=== PATIENT | male | born 1960 | race Caucasian/White ===

== ENCOUNTER 2019-11-16 09:04 | Emergency (ER) | payer SELFPAY ==
[2019-11-16 09:22] VITALS: BP 134/99; PULSE 65; RESP 18; TEMP 36.6; O2SAT 100; BMI 26.2
--- NOTE | 2019-11-16 09:36 | ED_ITS ---
HPI - Extremity Problem General: Chief complaint: Extremity Problem,Nontraumatic Stated complaint: Left hip/knee pain Time Seen by Provider: 11/16/19 09:10 Source: patient Mode of arrival: ambulatory Limitations: no limitations History of Present Illness: HPI Narrative: Patient is a very nice 59-year-old gentleman who presents to ED today with complaints of left-sided lower back pain with radiation into his left lower extremity. Patient states symptoms of been present over the past few days without any known injury or trauma. Patient states he has been told previously he has degenerative disc disease in his back although usually does not suffer from back discomfort. He describes the pain as a burning sensation starting in his left back and radiating around into the a nterior aspect of his left thigh down to approximately his knee. He denies any numbness/tingling/loss of sensation. Patient is ambulatory with a mild limp. He has not noticed any redness or swelling to his extremity. There is no complaints of pallor or coolness to the extremity. He does not complain of any numbness to his groin/genitals or any problems defecating or urinating. MD Complaint: extremity pain, joint paint and other (back pain) Onset (ago): day(s) Pain Consistency: constant Location: left Quality: burning Radiation: distal Relieving factors: nothing Exacerbating factors: range of motion, weight bearing and walking Associated symptoms: Deny chest pain, fever(s) or rash Review of Systems Const: Denies: fever, chills, body aches, fatigue, malaise or night sweats Card: Denies: chest pain, palpitations, irregular heart rhythm, edema, swelling of feet/ankles, lightheadedness, pre-syncope, shortness of breath on exertion, shortness of breath when lying down, leg pain with exertion or bluish discoloration of hands/feet Resp: Denies: shortness of breath or chest congestion : Denies: flank pain, difficulty urinating, painful urination, urinary frequency, urinary urgency or urinary hesitancy Musc: Reports: back pain, extremity pain and joint pain (back pain radiates into L hip); Denies: neck pain, extremity swelling, joint swelling, redness, joint warmth, joint stiffness, muscle cramps or muscle weakness Skin/Breast: Denies: rash Neuro: Denies: headache, numbness in extremities, weakness in extremities or changes in sensation PFSH ED PFSH: Social History Smoking and tobacco status: never smoked Physical Exam Const: COMMON NORMALS: no apparent distress, average body habitus, oriented x3, no limitations, healthy appearing, alert and well nourished Resp: COMMON NORMALS: normal respiratory effort and clear to auscultation bilaterally AUSCULTATION: clear to auscultation bilaterally Cardio: COMMON NORMALS: regular rate and regular rhythm RATE: regular rate RHYTHM: regular rhythm : COMMON NORMALS: Yes no CVA tenderness BLADDER/KIDNEY EXAM: Yes no CVA tenderness Back/Pelvis: COMMON NORMALS: no CVA tenderness, thoracic and lumbar spine normal to inspection and no thoracic nor lumbar tenderness LUMBAR SPINE/LOWER BACK: Yes paraspinal muscle tenderness Lumbar paraspinal muscle tenderness: left and Yes straight leg raise positive left SACROILIAC JOINTS: Yes SI joint(s) abnormal SI joint details: tender to palpation (left) and pain elicited by passi ve hyperextension of lower extremity (left) Extremity: COMMON NORMALS: normal capillary refill, no clubbing, cyanosis or edema, no calf tenderness and no pedal edema Neuro: COMMON NORMALS: oriented x3, moves all extremities, no focal motor deficits, no sensory deficits noted and deep tendon reflexes 2+ bilaterally SENSORIUM/ORIENTATION: Yes alert GAIT: Yes other (gait with a limp) Skin: COMMON NORMALS: no rashes or lesions noted GENERAL SKIN EXAM: no rashes or lesions noted Course Vital Signs: Vital signs: Vital Signs Temperature 97.9 F 11/16/19 09:22 Pulse Rate 68 11/16/19 10:39 Respiratory Rate 17 11/16/19 10:39 Blood Pressure 133/98 11/16/19 10:39 Pulse Oximetry 97 11/16/19 10:39 MDM - Extremity (Nontraumatic) MDM Narrative: Medical decision making narrative: pt feels better after IV meds and would like to go home; he has no acute neurological deficits here to warrant emergent advanced imaging or further workup; recommend he follow up with PCP in 1-2 wks for continued discomfort Discharge Plan Discharge Patient Disposition: Home, Self-Care Clinical Impression: Acute lumbar radiculopathy Condition: Stable Prescriptions: New cyclobenzaprine 10 mg tablet 10 mg PO TID Qty: 14 RF: 0 ibuprofen 800 mg tablet 800 mg PO Q8H PRN (Reason: pain) Qty: 20 RF: 0 Medrol (Reyes) 4 mg tablets,dose pack See Rx Instructions .ROUTE .COMPLEX Qty: 21 RF: 0 hydrocodone-acetaminophen 5-325 mg tablet 1 tab PO Q6H PRN (Reason: pain) Qty: 12 RF: 0 Discharge Orders: Discharge Order (Routine); Ordered 11/16/19 Ordered By: Danya Sorto Discharge Diet: Usual diet Discharge Activity: Increase activity as tolerated Patient Instructions: Lumbar Disc Herniation (ED), Lumbar Radiculopathy (ED) Discharge Date/Time: 11/16/19 10:42 Coding Level of Care Code ED Digital Project Coordinator for Darcig Fwd Exam Comprehensive
[2019-11-16] MEDS: ketorolac 60 mg/2 mL INJ IM (09:55)
[2019-11-16] MEDS: orphenadrine 30 mg/mL Inj 2 mL 60 MG IM (09:55)
[2019-11-16] MEDS: dexamethasone 10 mg/mL INJ 8 MG IM (09:55)
[2019-11-16 10:39] VITALS: BP 133/98; PULSE 68; RESP 17; O2SAT 97
== END 2019-11-16 10:42 | disposition home or self-care (01) ==
PROVIDERS: Emergency Provider Physician Assistant
DX: M54.16 Radiculopathy, lumbar region (principal)
CPT/HCPCS: 12345; 96372; 99281; 99283; J1100; J1885; J2360

== ENCOUNTER 2019-12-10 07:43 | Outpatient (CLI) | payer SELFPAY ==
--- NOTE | 2019-12-10 07:54 | MR_ITS ---
WS: [id number] MRI LUMBAR SPINE NONCONTRAST TECHNIQUE: Sagittal T1, T2 and STIR imaging. Axial T1 and T2 imaging. CLINICAL INFORMATION: LOW BACK PAIN COMPARISON: None. FINDINGS: Mild lumbar curve. No acute compression. No high-grade central canal stenosis. Mild disc bulging wors e L4-5 with a tiny annular fissure. L1-L2: Mild annular bulging. Mild facet arthropathy. Spinal canal and foramen are patent. L2-L3: Mild annular bulging. Mild facet arthropathy. Spinal canal and foramen are patent. L3-L4: Mild annular bulging. Slight effacement of ventral thecal sac. Small left foraminal protrusion slightly encroaches on the exiting L3 nerve root with mild left foraminal narrowing. Right foramen i s patent. Mild facet arthropathy. L4-L5: Shallow left pericentral disc protrusion with a tiny annular fissure. Mild facet arthropathy. Left foraminal protrusion impinges the exiting left L4 nerve root with moderate left proximal foramin al narrowing. Right foramen is patent. Mild facet arthropathy. Impingement traversing left L5 nerve r oot in the subarticular recess with mild central canal stenosis. L5-S1: Mild annular bulging. Mild facet arthropathy. Mild right greater than left foraminal narrowing . Spinal canal is patent. Tarlov cysts in the sacrum. Tiny amount of myelomalacia visualized in the cervical cord at C7/T1. MR/MR lumbar spine wo con* [id number] IMPRESSION: 1. Mild lumbar curve. No acute compression. No high-grade central canal stenos is. 2. Shallow left pericentral protrusion L4-5 impinges the traversing left L5 ne rve root with mild central canal stenosis. 3. Left proximal foraminal protrusion L4-5 impinges the exiting left L4 nerve root with moderate left foraminal narrowing. Recommend correlation for left L4 nerve root symptoms. 4. Far left foraminal protrusion L3-4 slightly contacts the far exiting left L 3 nerve root. 5. Mild to moderate facet arthropathy L3-L5. 6. Small amount of T2 signal normality in the cervical cord at C7-T1 likely re presents myelomalacia. Cervical cord could be further evaluated with MRI.
== END 2019-12-10 07:44 | disposition home or self-care (01) ==
LOC: RADWPI 07:45
PROVIDERS: PCP Physician Assistant; Visit Provider Physician Assistant
DX: M51.26 Other intervertebral disc displacement, lumbar region (principal); M47.816 Spondylosis without myelopathy or radiculopathy, lumbar region
CPT/HCPCS: 72148

== ENCOUNTER 2019-12-31 09:55 | Outpatient (CLI) | payer SELFPAY ==
--- NOTE | 2019-12-31 10:20 | MR_ITS ---
WS: [id number] MRI CERVICAL SPINE HISTORY: MYELOMALACIA COMPARISON: None available. 2 mm retrolisthesis of C3. Moderate degenerative disc space narrowing at C6-7. No marrow edema or fra cture. There is a 3 mm area of increased signal in the cervical cord posterior to the superior endplate of T 2. This is in the central cord without area of stenosis or gliosis or cord atrophy. Craniocervical junction, C1 and C2 relationship, odontoid process and soft tissues are normal. C2-C3: Normal. C3-C4: Mild diffuse disc bulging with mild bilateral foraminal stenosis. Mild encroachment upon the v entral thecal sac by osteophytes. C4-C5: Mild annular disc bulging and facet joint arthritis. Mild to moderate RIGHT foraminal stenosis . C5-C6: Mild asymmetric disc bulging and osteophytic ridging. Very slight narrowing of the central can al and mild narrowing of the foramen. C6-C7: Mild diffuse annular disc bulging and facet arthritis. Small bilateral foraminal osteophytes. There is mild central and LEFT foraminal stenosis due to disc osteophyte disease. C7-T1: Normal. Paraspinal soft tissue are normal. MR/MR cervical spin wo con* [id number] IMPRESSION: 1. Increased fluid signal in the cord posterior to T2 measures 3 mm. Favor thi s is probably a tiny syrinx or cyst and less likely myelomalacia. There is no a ssociated stenosis or cord gliosis or atrophy. 2. Mild central stenosis at C3-4 and C6-7 due to disc osteophyte disease. 3. Mild to moderate RIGHT foraminal stenosis at C4-5. 4. Mild LEFT foraminal stenosis at C6-7 and bilateral at C3-4 and C5-6.
== END 2019-12-31 09:56 | disposition home or self-care (01) ==
LOC: RADWPI 09:58
PROVIDERS: PCP Physician Assistant; Visit Provider Physician Assistant
DX: G95.89 Other specified diseases of spinal cord (principal); M48.02 Spinal stenosis, cervical region; M25.78 Osteophyte, vertebrae
CPT/HCPCS: 72141

== ENCOUNTER 2020-07-28 08:31 | Outpatient (CLI) | payer SELFPAY | END 2020-07-28 08:32 | disposition home or self-care (01) | LOC: WOUND 08:32 | PROVIDERS: PCP Physician Assistant; Visit Provider Surgery | DX: S61.225A Laceration with foreign body of left ring finger without damage to nail, initial encounter (principal) | CPT/HCPCS: 11043; G0463 ==

== ENCOUNTER 2020-08-02 14:06 | Outpatient (CLI) | payer SELFPAY | END 2020-08-02 14:07 | disposition home or self-care (01) | LOC: WOUND 14:07 | PROVIDERS: PCP Physician Assistant; Visit Provider Nurse Practitioner Family | DX: S61.221A Laceration with foreign body of left index finger without damage to nail, initial encounter (principal); X58.XXXA Exposure to other specified factors, initial encounter | CPT/HCPCS: 11042 ==

== ENCOUNTER 2020-08-09 13:43 | Outpatient (CLI) | payer SELFPAY | END 2020-08-09 13:44 | disposition home or self-care (01) | LOC: WOUND 13:44 | PROVIDERS: PCP Physician Assistant; Visit Provider Nurse Practitioner Family | DX: S61.225A Laceration with foreign body of left ring finger without damage to nail, initial encounter (principal); X58.XXXA Exposure to other specified factors, initial encounter | CPT/HCPCS: 11042 ==

== ENCOUNTER 2020-08-18 08:01 | Outpatient (CLI) | payer SELFPAY | END 2020-08-18 08:02 | disposition home or self-care (01) | LOC: WOUND 08:02 | PROVIDERS: PCP Physician Assistant; Visit Provider Surgery | DX: L98.492 Non-pressure chronic ulcer of skin of other sites with fat layer exposed (principal) | CPT/HCPCS: 11042 ==

== ENCOUNTER 2020-08-25 08:10 | Outpatient (CLI) | payer SELFPAY | END 2020-08-25 08:11 | disposition home or self-care (01) | LOC: WOUND 08:11 | PROVIDERS: PCP Physician Assistant; Visit Provider Surgery | DX: L98.492 Non-pressure chronic ulcer of skin of other sites with fat layer exposed (principal) | CPT/HCPCS: 97597 ==

== ENCOUNTER → 2024-03-25 13:38 | Outpatient (BNVA) | payer MEDICARE, SELFPAY | PROVIDERS: PCP Physician Assistant; Visit Provider Physician Assistant | DX: M79.641 Pain in right hand (principal); R22.31 Localized swelling, mass and lump, right upper limb | CPT/HCPCS: 73130; 99204 ==

== ENCOUNTER 2024-05-06 10:18 | Day surgery (SDC) | payer MEDICARE, SELFPAY ==
[2024-05-06] VITALS (7 sets, daily range): BP systolic 133–161; BP diastolic 60–94; PULSE 50–56; RESP 16–18; TEMP 36.1–36.6; O2SAT 92–97
[2024-05-06] MEDS: sodium chloride 0.9% 1,000 ML 30 ML IV (10:43)
[2024-05-06] MEDS: acetaminophen 1,000 MG/100 ML PIGGYBACK 400 MG IV (10:44)
[2024-05-06] MEDS: ketorolac 30 mg/mL INJ IVP (10:48)
--- NOTE | 2024-05-06 10:56 | ANES.PREANE2 ---
Pre-Anesthetic Assessment Height/Weight: Height 1.93 m Weight 101.605 kg Temp Pulse Resp BP Pulse Ox O2 Del Method 97.9 F 56 L 16 133/94 97 Room Air 05/06/24 10:34 05/06/24 10:34 05/06/24 10:34 05/06/24 10:34 05/06/24 10:34 05/06/24 10:34 Operation Date: 05/06/24 12:20 Proposed Procedures p Left hand palmar cyst excision(Left) - Tony Roberts DO Familial anesthetic complications: None Was Beta Greyson taken within 24 hours: N/A Was Clonidine taken within 24 hours: N/A Last intake: Intake Last Liquid Date 05/05/24 Last Liquid Time 21:00 Last Solid Date 05/05/24 Last Solid Time 20:00 Social No alcohol and No tobacco Exam alert, oriented x 3, clear to auscultation bilaterally and regular rate & rhythm Airway Mallampati: Class II Dentition: other (2 teeth) CV/HEM Hypertension GI Gastroesophageal Reflux Disease Anesthetic Plan ASA status: 2 Anesthesia: MAC Risk of > 500 ml blood loss (7ml/kg in children): No Medications/Allergies Home Medications Medication Instructions Recorded Confirmed Last Taken Type aspirin 81 mg tablet,delayed 81 mg PO DAILY 12/24/19 05/06/24 05/05/24 History release (Adult Aspirin Regimen) citalopram 40 mg tablet (Celexa) 40 mg PO DAILY 12/24/19 05/06/24 05/05/24 History gemfibrozil 600 mg tablet 600 mg PO DAILY 12/24/19 05/06/24 05/05/24 History metoprolol succinate 25 mg 25 mg PO DAILY 12/24/19 05/06/24 05/06/24 History tablet,extended release 24 hr (Toprol XL) multivitamin 1 tab PO DAILY 12/24/19 05/06/24 05/05/24 History amlodipine 10 mg tablet 10 mg PO DAILY 12/27/19 05/06/24 05/06/24 History chlorthalidone 25 mg tablet 12.5 mg PO DAILY 05/05/24 05/06/24 05/05/24 History esomeprazole magnesium 40 mg 40 mg PO DAILY 05/05/24 05/06/24 05/05/24 History capsule,delayed release Allergies Allergy/AdvReac Type Severity Reaction Status Date / Time morphine Allergy ADR-Halluci Verified 05/05/24 11:33 nating lisinopril AdvReac cough Verified 05/05/24 11:33 Current Medications Generic Name Dose Route Start Last Admin Trade Name Freq PRN Reason Stop Dose Admin Sodium Chloride 1,000 mls @ 30 mls/hr 05/06/24 10:30 05/06/24 10:43 Sodium Chloride 0.9% IV 05/07/24 10:29 30 mls/hr .Q24H YOU Administration PFSH Anesthesia Medical History Psychiatric care Cervical disc disorder with 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
--- NOTE | 2024-05-06 11:41 | W.PM.OPSFHP ---
Same Day Surgery H&P Indication for Procedure/HPI DATE OF PROCEDURE: May 06, 2024 CHIEF COMPLAINT/INDICATIONFOR SURGICAL PROCEDURE: Left hand palmar cyst PREOP DIAGNOSIS: Left hand palmar cyst PLANNED PROCEDURE: Operation Date: 05/06/24 12:20 Proposed Procedures p Left hand palmar cyst excision(Left) - Tony Roberts DO Medications/Allergies* Home Medications Medication Instructions Recorded Confirmed Type aspirin 81 mg tablet,delayed 81 mg PO DAILY 12/24/19 05/06/24 History release (Adult Aspirin Regimen) citalopram 40 mg tablet (Celexa) 40 mg PO DAILY 12/24/19 05/06/24 History gemfibrozil 600 mg tablet 600 mg PO DAILY 12/24/19 05/06/24 History metoprolol succinate 25 mg 25 mg PO DAILY 12/24/19 05/06/24 History tablet,extended release 24 hr (Toprol XL) multivitamin 1 tab PO DAILY 12/24/19 05/06/24 History amlodipine 10 mg tablet 10 mg PO DAILY 12/27/19 05/06/24 History chlorthalidone 25 mg tablet 12.5 mg PO DAILY 05/05/24 05/06/24 History esomeprazole magnesium 40 mg 40 mg PO DAILY 05/05/24 05/06/24 History capsule,delayed release Allergies/Adverse Reactions Allergy/AdvReac Type Severity Reaction Status Date / Time morphine Allergy ADR-Halluci Verified 05/05/24 11:33 nating lisinopril AdvReac cough Verified 05/05/24 11:33 Current Medications: Generic Name Dose Route Start Last Admin Trade Name Freq PRN Reason Stop Dose Admin Sodium Chloride 1,000 mls @ 30 mls/hr 05/06/24 10:30 05/06/24 10:43 Sodium Chloride 0.9% IV 05/07/24 10:29 30 mls/hr .Q24H YOU Administration Pertinent History/Comorbid Conditions* Medical History (Updated 03/25/24 @ 14:17 by MARKEL Warner) Psychiatric care Cervical disc disorder with myelopathy of mid-cervical region Intervertebral disc disorder with radiculopathy of lumbar region Surgical History (Updated 01/05/20 @ 15:54 by Mona Roy APRN) History of tonsillectomy History of foot surgery (~2000) History of appendectomy History of bowel resection (~05/2004) History of knee surgery (~12/1984) Family History (Updated 12/27/19 @ 09:14 by Krystin Strong LPN) FH: kidney cancer Sister Hypertension Father Mother Social History Smoking and tobacco/nicotine status: former use of tobacco/nicotine Alcohol intake: current Substance/Drug Use: never Household members: spouse Marital status: Current occupational status: retired Pertinent Exam Findings alert, oriented x 3, operative site marked and procedure specific exam findings Please refer to detailed orthopedic exam on 03/25/2024 today he has a palmar cyst on the left hand just proximal to the A1 jay of the left middle finger Left hand- palpable soft and mobile cyst on palmar aspect of hand. No erythema, warmth or purulent drainage seen. Full range of motion of fingers but patient endorses pain with flexion of fingers. No mechanical locking or catching of fingers. No A1 jay tenderness. Nursing Informatics Specialist strength 5 out of 5. Recommendations Surgery/Procedure today Other Plans: Plan to proceed to the OR today for a left hand palmar cyst excision. Patient understands the ins and outs of the procedure the risk benefits complication alternatives with surgery and through shared decision-making elects proceed with surgical intervention to have this removed. All questions been answered at this time. Coding Level of Care Code Acute Code for Shalonda Lora
[2024-05-06] MEDS: ceFAZolin 2,000 MG in sodium chloride 0.9% (plus) 50 ML 100 MG IV (12:21)
[2024-05-06] MEDS: ROPivacaine 0.5% SDV 30 mL 25 MG INJECTION (12:47)
[2024-05-06] MEDS: lidocaine 1% 10 ML INJ XX (12:48)
--- NOTE | 2024-05-06 12:49 | P.BOP_ITS ---
Date of Procedure: 05/06/2024 Surgeon: Tony Roberts DO Co Teacher(s): None Procedure(s) performed: Left palmar hand cyst excision (2 cm x 1 cm x 1 cm) Findings of the procedure(s): Patient found to have a left hand palmar cyst this appears to be more clinically of a epidermal inclusion cyst. This was excised without any issues or complications was right on top of the flexor tendon sheath of the left middle finger. Patient dressed in a bulky soft dressing taken to [facility] stable condition Estimated blood loss: 2 mL Specimen(s) removed: Left hand palmar cyst sent for pathology Post-operative diagnosis: Left hand palmar cyst
--- NOTE | 2024-05-06 12:51 | PM.OP ---
Operative Report Date of procedure: May 06, 2024 Surgeon: Tony Roberts DO Procedure: Preoperative diagnosis: Left hand palmar cyst Postoperative diagnosis: Same Procedure Left palmar hand cyst excision (2 cm x 1 cm x 1 cm) Specimens removed/disposition: Left?hand palmar cyst excised and sent for pathology Surgeon: Tony Roberts DO Estimated blood loss: 2mL Tourniquet time 8 minutes IV fluids: See anesthesia record Complications: None Findings: See operative report narrative Condition: stable Disposition: same day Brief History: Patient's been worked up in the outpatient setting and findings consistent with preoperative diagnosis.? Patient has a left hand palmar cyst. Patient has attempted conservative treatment and this has become painful.? ?We talked about treatment options as far as nonoperative and operative intervention.? At this point time patient like a more permanent solution in the lowest chance of recurrence and as result through shared decision making we agreed to proceed with a Left?palmar cyst excision. Patient understands risk benefits complication alternatives surgical nonsurgical treatment options.? Understanding risk of surgery patient agrees to proceed.? All questions answered.? Consent obtained in preop. Procedure: Patient seen evaluate in the preoperative holding area.? Consent was signed and reviewed with patient.? All questions were answered at that time.? Correct extremity was then marked.? Once seen evaluated by anesthesia patient was then brought back to the operative suite.? Patient was then placed in supine position all bony prominences well-padded patient was properly secured to the bed.? An armboard was then applied for the Left upper extremity.? A nonsterile tourniquet was applied to the Left upper extremity arm.? Patient then underwent anesthesia per the anesthesia department.? Once appropriately anesthetized the Left upper extremity was then prepped and draped in standard orthopedic fashion.? Final timeout performed.? Patient received appropriate preoperative antibiotics. Under sterile aseptic technique I began with local anesthetic for my preplanned surgical site.? Then I utilized an Esmarch tourniquet to exsanguinate the Left upper extremity to 250 mmHg Patient had a soft mobile cyst was identified on the left hand just proximal to the A1 jay of the left middle finger. I subsequently proceeded with sharp scalpel incision incision directly over the cyst. Sharp scalpel incision was made through skin only. I subsequently switched to Littler dissection scissors to dissect out the cyst the cyst was immediately encountered and I subsequently mobilized circumferentially around the cyst and found this at its stalk. This was resting right on top of the flexor tendon sheath cyst had appearance of epidermal inclusion cyst the cyst was excised in its entirety a 2 cm x 1 cm x 1 cm. This was excised without issues or complications I utilized high school assistant principal with Kasdan retractors to protect the neurovascular bundles while dissecting. Once this was excised was sent for pathology I then thoroughly irrigated the wound bed tourniquet was deflated. ? Hemostasis was satisfactory with bipolar electrocautery.? I then closed the incision with stitch for skin.? Xeroform over the incisions 4 x 4's ABD soft roll bulky soft dressing with Bigg wrap.? Patient was then awakened from anesthesia and taken back in stable condition. Disposition: Patient taken back in stable condition recovering well.? Patient will receive appropriate discharge instructions as well as pain medication postoperatively.? Patient placed in a?bulky soft dressing.We will follow-up with in the orthopedic office in 2 weeks.? Patient understands of any questions or concerns and contact the office.
--- NOTE | 2024-05-06 13:55 | ANE.PACU2 ---
Inpatient post-anesthesia follow up: Airway intact: Yes Vital signs: Temperature 97.6 F Pulse Rate 53 Respiratory Rate 16 Blood Pressure 139/81 Pulse Oximetry 94 Oxygen Delivery Me thod Room Air Oxygen Flow Rate Fraction of Inspir ed Oxygen Hydration adequate: Yes Nausea and vomiting: No Pain level: 1 Mental status: Baseline
== END 2024-05-06 13:55 | disposition home or self-care (01) ==
PROVIDERS: PCP Physician Assistant; Visit Provider Student in an Organized Health Care Education/Training Program
PROC: (CPT 11422; principal; 2024-05-06 12:20)
DX: L72.0 Epidermal cyst (principal); I10 Essential (primary) hypertension; K21.9 Gastro-esophageal reflux disease without esophagitis; Z79.82 Long term (current) use of aspirin; Z87.891 Personal history of nicotine dependence
CPT/HCPCS: 11422; 88304; J0131; J0690; J1885; J2704; J2795; J3010; J7030

== ENCOUNTER → 2024-05-20 08:21 | Outpatient (BNVA) | payer MEDICARE, SELFPAY | PROVIDERS: PCP Physician Assistant; Visit Provider Physician Assistant | DX: Z98.890 Other specified postprocedural states (principal) | CPT/HCPCS: 99024 ==